=== PATIENT | female | born 1985 | race Hispanic/Latino ===

== ENCOUNTER 2022-07-28 10:36 | Emergency (ER) | payer OTHER ==
[~2022-07-28] VITALS: Ht 154.9 cm; Wt 89.8 kg
[2022-07-28 14:13] VITALS: O2SAT 99
== END 2022-07-28 14:24 | disposition home or self-care (01) ==
LOC: FSED 10:53
DX: R10.2 Pelvic and perineal pain (principal); N83.201 Unspecified ovarian cyst, right side
CPT/HCPCS: 76830; 76856; 80048; 81003; 81025; 85025; 93976; 99284

== ENCOUNTER 2024-05-22 15:14 | Emergency (ER) | payer SELFPAY ==
[~2024-05-22] VITALS: Ht 154.9 cm; Wt 68.0 kg
[2024-05-22] MEDS: ONDANSETRON HCL 4 MG ORAL DISINTEGRATING TAB PO STA (16:04)
[2024-05-22] MEDS: KETOROLAC TROMETHAMINE 60 MG/2 ML VIAL IM STA (16:04)
[2024-05-22 16:11] LABS: CLARITY,URINE CLEAR (CLEAR); COLOR,URINE YELLOW (YELLOW); LEUKOCYTE ESTERASE ,URINE NEGATIVE (NEGATIVE); NITRITE,URINE NEGATIVE (NEGATIVE); PH,URINE 6 (5 - 7)
[2024-05-22 16:12] LABS: BILIRUBIN,URINE NEGATIVE (NEGATIVE); GLUCOSE, URINE NEGATIVE (NEGATIVE); KETONES,URINE NEGATIVE (NEGATIVE); PROTEIN,URINE DIPSTICK NEGATIVE (NEGATIVE); URINE UROBILINOGEN 0.2 mg/dL (0.2 - 1)
[2024-05-22 17:30] VITALS: PULSE 58; RESP 16; TEMP 98.1; O2SAT 97
[2024-05-22] MEDS ORDERED: MIRALAX17 GM PO (17:34)
[2024-05-22 17:37] LABS: EPITHELIAL CELLS,URINE FEW /LPF; RBC,URINE 0-5 /HPF (0-5); WBC,URINE (MAN) 0-5 /HPF (0-5)
== END 2024-05-22 17:52 | disposition home or self-care (01) ==
LOC: ER 15:19
DX: R10.30 Lower abdominal pain, unspecified (principal)
CPT/HCPCS: 74176; 81001; 81025; 99283; J1885; Q0162

== ENCOUNTER 2024-11-16 11:38 | Emergency (ER) | payer SELFPAY ==
[~2024-11-16] VITALS: Ht 154.9 cm; Wt 72.6 kg
[~2024-11-16 11:38] MED LIST: MIRALAX17 GM PO
[2024-11-16 12:20] VITALS: TEMP 97.9
[2024-11-16] MEDS: KETOROLAC TROMETHAMINE 30 MG/ML VIAL IM STA (13:04)
[2024-11-16] MEDS: TRAMADOL HCL 50 MG TAB PO ONE (13:05)
[2024-11-16 13:25] VITALS: PULSE 62; RESP 14; O2SAT 100
[2024-11-16 13:58] VITALS: BP 101/66; PULSE 61; RESP 15; TEMP 98.2
== END 2024-11-16 14:01 | disposition home or self-care (01) ==
LOC: ER 11:50
DX: M25.572 Pain in left ankle and joints of left foot (principal); S84.12XA Injury of peroneal nerve at lower leg level, left leg, initial encounter; X50.1XXA Overexertion from prolonged static or awkward postures, initial encounter; Y92.89 Other specified places as the place of occurrence of the external cause
CPT/HCPCS: 73610; 99283; J1885